=== PATIENT | male | born 1985 | race African-American/Black ===

== ENCOUNTER 2025-07-24 03:57 | Inpatient (IN) | payer OTHER ==
[2025-07-24 06:52] LABS: ABSOLUTE IMMATURE GRANULOCYTES 0.06 x10^3/uL (0.0-0.031); BASOPHILS # 0.08 x10^3/uL (0.01-0.08); EOSINOPHIL % 0.2 % (0.8-7.0); EOSINOPHILS # 0.03 x10^3/uL (0.04-0.54); MCHC 33.4 g/dl (32.3-36.5); MEAN CELL VOLUME 86.3 fl (79.0-92.2); MEAN PLT VOLUME 10.2 fl (9.4-12.4); MONOCYTE # 1.91 x10^3/uL (0.30-0.82); MONOCYTE % 11.3 % (5.3-12.2); RDW 12.9 % (12.0-15.6)
[2025-07-24] MEDS: morphine CARPU-JECT 4 MG/1 ML DISP.SYRIN IVPUSH ONE (06:53)
[2025-07-24 07:10] LABS: INR 2.15 (0.83-1.09); PROTHROMBIN TIME (PATIENT) 23.7 SEC (9.7-13.0)
[2025-07-24 07:13] LABS: ACTIVATED PTT 38.7 SECONDS (25.2-36.5)
[2025-07-24 07:27] LABS: GLUCOSE,RANDOM 108.0 mg/dL (74-106); TOT PROT 8.1 g/dl (6.4-8.2)
[2025-07-24 07:28] LABS: ALK PHOS 66.0 U/L (40-150); CO2 25.0 mmol/L (21-32); CREATININE 1.12 mg/dL (0.55-1.3); SGOT/AST 21.0 U/L (5-34); SGPT/ALT 22.0 U/L (0-55)
[2025-07-24] MEDS ORDERED: ACETAMINOPHEN INJECTION 100 ML ONE (08:31)
[2025-07-24] MEDS: ACETAMINOPHEN 1000 MG/100 ML BAG IVPB ONE (09:01)
[2025-07-24] MEDS ORDERED: ACETAMINOPHEN 325 MG TABLET (FP) PO PRN (10:18)
[2025-07-24] MEDS ORDERED: ENOXAPARIN NA (PORCINE) 100 MG/1 ML DISP.SYRIN SQ ONE (10:21)
[2025-07-24] MEDS ORDERED: POTASSIUM CHLORIDE ORAL LIQUID 20 MEQ/15 ML ONE (10:24)
[2025-07-24] MEDS ORDERED: MAGNESIUM SULFATE IN WATER 2 GM/50 ML IVPB IVPB ONE (10:24)
[2025-07-24] MEDS: ENOXAPARIN NA (PORCINE) 100 MG/1 ML DISP.SYRIN SQ ONE (10:32)
[2025-07-24] MEDS: POTASSIUM CHLORIDE ORAL LIQUID 20 MEQ/15 ML PO ONE (11:00)
[2025-07-24] MEDS: MAGNESIUM 2GM/50ML STERILE WATER IVPB IVPB ONE (11:00)
[2025-07-24] MEDS ORDERED: ONDANSETRON 4 MG/2 ML VIAL IVPUSH PRN (12:39)
[2025-07-24 12:47] LABS: EPI CELLS 15 /uL (0-25.1); HYALINE CASTS 6 /uL (0-3.1); URINE APPEARANCE CLEAR; URINE BACTERIA 1 /uL (0-1359); URINE BILIRUBIN 1+ (NEGATIVE); URINE COLOR DK YELLOW; URINE GLUCOSE (UA) NEGATIVE (NEGATIVE); URINE KETONE 3+ (NEGATIVE); URINE LEUK ESTERASE TRACE (NEGATIVE); URINE NITRITE NEGATIVE (NEGATIVE); URINE PROTEIN 1+ (NEGATIVE); URINE RBC 43 /uL (0-23.9); URINE UROBILINOGEN 1.0 mg/dL (0.2-1.0); URINE WBC 65 /uL (0-25.8)
[2025-07-24 12:55] LABS: HCV DIAGNOSTIC IN-HOUSE W/RFLX NON-REACTIVE (NONREACTIVE); HIV INTERPRETATION NEGATIVE (NEGATIVE)
[2025-07-24] MEDS: HYDROCHLOROTHIAZIDE 25 MG TABLET (FP) PO SCH (13:04)
[2025-07-24 13:36] VITALS: BMI 33.3
[2025-07-24] MEDS: ENOXAPARIN NA (PORCINE) 100 MG/1 ML DISP.SYRIN SQ SCH (21:42)
[2025-07-25 08:44] LABS: ABSOLUTE IMMATURE GRANULOCYTES 0.29 x10^3/uL (0.0-0.031); BASOPHILS # 0.07 x10^3/uL (0.01-0.08); EOSINOPHIL % 0.7 % (0.8-7.0); EOSINOPHILS # 0.10 x10^3/uL (0.04-0.54); MCHC 33.3 g/dl (32.3-36.5); MEAN CELL VOLUME 86.6 fl (79.0-92.2); MEAN PLT VOLUME 10.3 fl (9.4-12.4); MONOCYTE # 1.82 x10^3/uL (0.30-0.82); MONOCYTE % 12.3 % (5.3-12.2); RDW 13.1 % (12.0-15.6)
[2025-07-25 09:10] LABS: INR 1.42 (0.83-1.09); PROTHROMBIN TIME (PATIENT) 15.6 SEC (9.7-13.0)
[2025-07-25 09:11] LABS: ACTIVATED PTT 36.5 SECONDS (25.2-36.5)
[2025-07-25 09:48] LABS: GLUCOSE,RANDOM 106.0 mg/dL (74-106)
[2025-07-25 09:50] LABS: CO2 25.0 mmol/L (21-32)
[2025-07-25 09:52] LABS: LDH 175.0 U/L (87-246)
[2025-07-25 09:54] LABS: CREATININE 1.22 mg/dL (0.55-1.3)
[2025-07-25 09:57] LABS: IRON SERUM 17.0 ug/dL (50-175)
[2025-07-25] MEDS: ACETAMINOPHEN 1000 MG/100 ML BAG IVPB SCH (11:41)
[2025-07-26] MEDS: morphine CARPU-JECT 2 MG/1 ML DISP.SYRIN IVPUSH PRN (05:52)
[2025-07-26 08:27] LABS: ABSOLUTE IMMATURE GRANULOCYTES 0.09 x10^3/uL (0.0-0.031); BASOPHILS # 0.06 x10^3/uL (0.01-0.08); EOSINOPHIL % 0.9 % (0.8-7.0); EOSINOPHILS # 0.12 x10^3/uL (0.04-0.54); MCHC 33.1 g/dl (32.3-36.5); MEAN CELL VOLUME 86.9 fl (79.0-92.2); MEAN PLT VOLUME 9.8 fl (9.4-12.4); MONOCYTE # 1.32 x10^3/uL (0.30-0.82); MONOCYTE % 9.6 % (5.3-12.2); RDW 12.9 % (12.0-15.6)
[2025-07-26 09:02] LABS: GLUCOSE,RANDOM 101.0 mg/dL (74-106)
[2025-07-26 09:03] LABS: TOT PROT 7.5 g/dl (6.4-8.2)
[2025-07-26 09:04] LABS: CO2 31.0 mmol/L (21-32)
[2025-07-26 09:05] LABS: ALK PHOS 80.0 U/L (40-150)
[2025-07-26 09:08] LABS: SGOT/AST 44.0 U/L (5-34); SGPT/ALT 61.0 U/L (0-55)
[2025-07-26 09:17] LABS: CREATININE 1.22 mg/dL (0.55-1.3)
[2025-07-26] MEDS: predniSONE 20 MG TABLET (UD) PO SCH (21:32)
[2025-07-27] MEDS: predniSONE 20 MG TABLET (UD) PO SCH (03:30)
[2025-07-27] MEDS ORDERED: PROPOFOL 20 ML ONE ×5 (07:42→10:50)
[2025-07-27] MEDS ORDERED: KETAMINE HCL 200 MG/20 ML VIAL ONE (07:42)
[2025-07-27] MEDS ORDERED: MIDAZOLAM HCL 2 MG/2 ML SINGLE DOSE VIAL ONE (07:42)
[2025-07-27] MEDS ORDERED: methylPREDNISolone NA SUCC 125 MG/2 ML VIAL ONE (08:54)
[2025-07-27] MEDS ORDERED: ONDANSETRON 4 MG/2 ML VIAL ONE (08:54)
[2025-07-27] MEDS ORDERED: HEPARIN NA (PORCINE) 5,000 UNITS/ML 1ML VIAL ONE (09:05)
[2025-07-27] MEDS: LIDOCAINE HCL 1%, 10 MG/ML (20ML VIAL) INF ONE (09:15)
[2025-07-27] MEDS ORDERED: ONDANSETRON 4 MG/2 ML VIAL IVPUSH PRN ×3 (11:41→11:58)
[2025-07-27] MEDS ORDERED: morphine CARPU-JECT 2 MG/1 ML DISP.SYRIN IVPUSH PRN (11:58)
[2025-07-27] MEDS ORDERED: predniSONE 20 MG TABLET (UD) PO ONE (11:58)
[2025-07-27] MEDS ORDERED: diphenhydrAMINE HCL 25 MG CAPSULE (FP) PO ONE (11:58)
[2025-07-27] MEDS ORDERED: predniSONE 20 MG TABLET (UD) PO SCH ×2 (11:58)
[2025-07-27] MEDS: LACTATED RINGERS SOLUTION 1,000 ML IV SCH ×2 (13:07→13:08)
[2025-07-27] MEDS: predniSONE 20 MG TABLET (UD) PO ONE (14:09)
[2025-07-27] MEDS: diphenhydrAMINE HCL 25 MG CAPSULE (FP) PO ONE (14:09)
[2025-07-27] MEDS: predniSONE 40 MG, predniSONE 10 MG PO ONE (14:57)
[2025-07-27 16:07] VITALS: RESP 18
[2025-07-27] MEDS: ACETAMINOPHEN 1000 MG/100 ML BAG IVPB PRN (19:29)
[2025-07-27] MEDS: ENOXAPARIN NA (PORCINE) 100 MG/1 ML DISP.SYRIN SQ SCH (21:04)
[2025-07-28 07:59] LABS: MCHC 32.3 g/dl (32.3-36.5); MEAN CELL VOLUME 88.0 fl (79.0-92.2); MEAN PLT VOLUME 9.4 fl (9.4-12.4); RDW 13.5 % (12.0-15.6)
[2025-07-28 08:43] LABS: GLUCOSE,RANDOM 117.0 mg/dL (74-106)
[2025-07-28 08:44] LABS: CO2 28.0 mmol/L (21-32); TOT PROT 7.0 g/dl (6.4-8.2)
[2025-07-28 08:46] LABS: ALK PHOS 79.0 U/L (40-150)
[2025-07-28 08:49] LABS: CREATININE 1.07 mg/dL (0.55-1.3); SGOT/AST 28.0 U/L (5-34); SGPT/ALT 50.0 U/L (0-55)
[2025-07-28 09:49] VITALS: BP 138/81; PULSE 80; TEMP 98.4
== END 2025-07-28 12:55 | disposition home or self-care (01) | DRG 169 ==
LOC: JER 03:57 → JERBED 09:51 → OBSVTOIN 10:18 → J5S 12:48
PROVIDERS: ADMIT Student in an Organized Health Care Education/Training Program; ATTEND Internal Medicine
PROC: 06CM3ZZ Extirpation of Matter from Right Femoral Vein, Percutaneous Approach (ICD-10-PCS; 2025-07-27)
PROC: 06CC3ZZ Extirpation of Matter from Right Common Iliac Vein, Percutaneous Approach (ICD-10-PCS; principal; 2025-07-27 10:00)
DX: I82.401 Acute embolism and thrombosis of unspecified deep veins of right lower extremity (principal); D68.51 Activated protein C resistance; E88.09 Other disorders of plasma-protein metabolism, not elsewhere classified; E87.6 Hypokalemia; I10 Essential (primary) hypertension
CPT/HCPCS: 36415; 71045-TC-FY; 74176-TC; 76000-TC-FY; 80048; 80053; 81003; 82248; 82728; 83010; 83540; 83550; 83615; 83735; 84100; 84484; 85025; 85610; 85730; 86803; 86850; 86900; 86901; 87040; 87070; 87205; 87389; 93005; 93010; 93971-TC-RT; 93978; 94760; 97116-GP; 97161-GP; 99285-25; C1757; C1769; G0378